=== PATIENT | female | born 1960 | race African-American/Black ===

== ENCOUNTER 2022-03-04 06:58 | Day surgery (SDC) | payer OTHER ==
[2022-02-26 16:57] VITALS: BMI 26.6
[2022-03-04] MEDS ORDERED: CEFAZOLIN 2 GM in DEXTROSE 5%-WATER - 50 ML IVPB ONE (07:14)
[2022-03-04] MEDS ORDERED: CELECOXIB 200 MG CAPSULE PO ONE (07:14)
[2022-03-04] MEDS ORDERED: SUCCINYLCHOLINE CHLORIDE 200 MG/10 ML SYRINGE ONE (08:13)
[2022-03-04] MEDS ORDERED: PROPOFOL 40 ML ONE (08:13)
[2022-03-04] MEDS ORDERED: MIDAZOLAM HCL 2 MG/2 ML SINGLE DOSE VIAL ONE ×3 (08:13→09:41)
[2022-03-04] MEDS ORDERED: BUPIVACAINE HCL/PF 0.5% (5MG/ML) 10 ML VIAL ONE (08:16)
[2022-03-04] MEDS ORDERED: BUPIVACAINE LIPOSOME/PF (EXPAREL) 266 MG/20 ML VIAL ONE (08:45)
[2022-03-04] MEDS ORDERED: BUPIVACAINE HCL/PF 0.5% (5 MG/ML) 30 ML VIAL IJ ONE (08:45)
[2022-03-04] MEDS ORDERED: TRANEXAMIC ACID 1000 MG/10 ML VIAL IVPUSH ONE (09:00)
[2022-03-04] MEDS ORDERED: ZOLPIDEM TARTRATE 5 MG TABLET PO PRN (09:22)
[2022-03-04] MEDS ORDERED: PATIENT'S OWN MEDICATION (NON-FORMULARY) (Tizanidine Hcl [Tizanidine Hcl] 4 MG Tablet) PO PRN (09:22)
[2022-03-04] MEDS ORDERED: diazePAM 5 MG TABLET PO PRN (09:22)
[2022-03-04] MEDS ORDERED: ONDANSETRON 4 MG/2 ML VIAL IVPUSH PRN ×2 (09:24→11:28)
[2022-03-04] MEDS ORDERED: MAG HYDROX/AL HYDROX/SIMETH 30 ML UNIT-DOSE CUP PO PRN (09:24)
[2022-03-04] MEDS ORDERED: LACTATED RINGERS SOLUTION 1,000 ML IV SCH ×2 (09:30→11:30)
[2022-03-04] MEDS ORDERED: VANCOMYCIN 1,000 MG VIAL (RESTRICTED TO ID ONLY) ONE (09:59)
[2022-03-04] MEDS ORDERED: LEVOTHYROXINE NA 75 MCG TABLET (FP) PO SCH (10:00)
[2022-03-04] MEDS ORDERED: SERTRALINE HCL 25 MG TABLET (FP) PO SCH (10:00)
[2022-03-04] MEDS ORDERED: DEXAMETHASONE SOD PHOSPHATE 4 MG/1 ML VIAL ONE (10:14)
[2022-03-04] MEDS ORDERED: ONDANSETRON 4 MG/2 ML VIAL ONE (10:14)
[2022-03-04] MEDS ORDERED: SODIUM CHLORIDE 0.9% P/F 10 ML VIAL IJ ONE (10:14)
[2022-03-04] MEDS ORDERED: PHENYLEPHRINE HCL 10 MG/1 ML SINGLE DOSE VIAL ONE (10:14)
[2022-03-04] MEDS ORDERED: KETOROLAC TROMETHAMINE 30 MG/1 ML VIAL ONE (10:14)
[2022-03-04] MEDS ORDERED: TRANEXAMIC ACID 1000 MG/10 ML VIAL ONE (10:14)
[2022-03-04] MEDS ORDERED: ePHEDrine SULFATE 50 MG/1 ML AMPULE ONE (10:23)
[2022-03-04] MEDS ORDERED: PROPOFOL 20 ML ONE (10:41)
[2022-03-04] MEDS ORDERED: oxyCODONE HCL 5 MG TABLET PO PRN (11:28)
[2022-03-04] MEDS: ACETAMINOPHEN 1000 MG/100 ML BAG IVPB ONE ×2 (11:45→13:40)
[2022-03-04] MEDS: ESCITALOPRAM OXALATE 10 MG TABLET PO SCH (13:40)
[2022-03-04] MEDS: PANTOPRAZOLE 20 MG TABLET PO SCH (13:40)
[2022-03-04] MEDS: MULTIVITAMINS (DAILY MVI) TABLET (FP) PO SCH (15:09)
[2022-03-04] MEDS: HYDROCHLOROTHIAZIDE 25 MG TABLET (FP) PO SCH (15:09)
[2022-03-04] MEDS: KETOROLAC TROMETHAMINE 30 MG/1 ML VIAL IVPUSH SCH (17:46)
[2022-03-04] MEDS: ACETAMINOPHEN 500 MG TABLET (FP) PO SCH (17:47)
[2022-03-04] MEDS ORDERED: VANCOMYCIN HCL 1,250 MG in DEXTROSE 5%-WATER - 250 ML IVPB ONE (21:00)
[2022-03-04] MEDS ORDERED: VANCOMYCIN/WATER 1,250 MG/250 ML BAG IVPB ONE (21:00)
[2022-03-04] MEDS: oxyCODONE HCL 10 MG SUSTAINED ACTING TABLET PO SCH (21:04)
[2022-03-04] MEDS: oxyCODONE HCL 5 MG TABLET PO PRN (21:21)
[2022-03-05] MEDS: KETOROLAC TROMETHAMINE 30 MG/1 ML VIAL IVPUSH SCH
[2022-03-05] MEDS: ACETAMINOPHEN 500 MG TABLET (FP) PO SCH ×3 (06:02→12:58)
[2022-03-05] MEDS ORDERED: LEVOTHYROXINE NA 150 MCG TABLET PO SCH (07:00)
[2022-03-05] MEDS ORDERED: ASPIRIN 325 MG TABLET PO SCH (08:00)
[2022-03-05] MEDS: oxyCODONE HCL 5 MG TABLET PO PRN ×2 (08:11→12:59)
[2022-03-05 08:17] LABS: HEMATOCRIT 31.7 % (32.4-45.2); MCHC 34.7 g/dl (32.0-36.0); MEAN CELL VOLUME 80.9 fl (80-96); MEAN PLT VOLUME 8.1 fl (7.5-11.1); PLATELET COUNT 223.4 10^3/uL (134-434); RBC 3.92 10^6/uL (3.60-5.2); RDW 14.8 % (11.6-15.6)
[2022-03-05 08:22] LABS: ALBUMIN 3.5 g/dl (3.4-5.0); BILIRUBIN,TOTAL 0.8 mg/dl (0.2-1); CALCIUM 9.2 mg/dl (8.5-10); CREATININE 0.8 mg/dl (0.55-1.3); TOT PROT 6.1 g/dl (6.4-8.2)
[2022-03-05 09:32] VITALS: RESP 17; TEMP 98.6
[2022-03-05] MEDS: oxyCODONE HCL 10 MG SUSTAINED ACTING TABLET PO SCH (09:32)
[2022-03-05] MEDS: ESCITALOPRAM OXALATE 10 MG TABLET PO SCH (09:33)
[2022-03-05] MEDS: PANTOPRAZOLE 20 MG TABLET PO SCH (09:33)
[2022-03-05] MEDS: MULTIVITAMINS (DAILY MVI) TABLET (FP) PO SCH (09:33)
[2022-03-05] MEDS: HYDROCHLOROTHIAZIDE 25 MG TABLET (FP) PO SCH (09:33)
[2022-03-05] MEDS ORDERED: LOSARTAN POTASSIUM 50 MG TABLET PO SCH (10:00)
[2022-03-05 14:39] VITALS: BP 117/55; PULSE 79
== END 2022-03-05 15:02 | disposition home or self-care (01) ==
LOC: FASUSAT 06:58 → FM/S 13:09 → FASUSAT 03-05 15:02
PROVIDERS: ATTEND Orthopaedic Surgery
PROC: 0SRC0J9 Replacement of Right Knee Joint with Synthetic Substitute, Cemented, Open Approach (ICD-10-PCS; principal; 2022-03-04 09:56)
DX: M17.11 Unilateral primary osteoarthritis, right knee (principal)
CPT/HCPCS: 20985; 27446; C1776; S2900; 36415; 73560-TC-RT-FY; 80053; 85027; 94760; 97010-GP; 97116-GP; 97162-GP; C1713